=== PATIENT | male | born 2000 | race African-American/Black ===

== ENCOUNTER 2022-06-26 17:02 | Emergency (ER) | payer MEDICAID, OTHER ==
[~2022-06-26] VITALS: Ht 182.9 cm; Wt 79.0 kg
[2022-06-26 17:30] VITALS: BP 124/69
== END 2022-06-26 23:08 | disposition left against medical advice (07) ==
LOC: ER 17:02
DX: M79.642 Pain in left hand (principal); Z53.21 Procedure and treatment not carried out due to patient leaving prior to being seen by health care provider